=== PATIENT | female | born 1975 | race Caucasian/White ===

== ENCOUNTER 2023-04-10 09:40 | Outpatient (CLI) | payer OTHER ==
[~2023-04-10 09:40] MED LIST: DOCUSATE SODIU100 MG PO; PROCTOCREAM-HC30 GM RC
[2023-04-11] MEDS ORDERED: NAPR500T14 PO (12:20)
[2023-04-11] MEDS ORDERED: MORGIDOX100 MG PO (12:20)
== END 2023-04-10 14:28 | disposition home or self-care (01) ==
LOC: LAB 09:40
PROVIDERS: ATTEND Obstetrics & Gynecology
DX: N91.1 Secondary amenorrhea (principal); Z03.818 Encounter for observation for suspected exposure to other biological agents ruled out

== ENCOUNTER 2023-04-11 09:49 | Day surgery (SDC) | payer OTHER ==
[2023-04-11] MEDS ORDERED: NAPR500T14 PO (12:20)
[2023-04-11] MEDS ORDERED: MORGIDOX100 MG PO (12:20)
== END 2023-04-11 17:05 | disposition home or self-care (01) ==
LOC: CIR.AMB 09:49
PROVIDERS: ATTEND Obstetrics & Gynecology
DX: N85.02 Endometrial intraepithelial neoplasia [EIN] (principal); N93.8 Other specified abnormal uterine and vaginal bleeding; I10 Essential (primary) hypertension; Z20.822 Contact with and (suspected) exposure to COVID-19

== ENCOUNTER 2023-06-20 10:15 | Inpatient (IN) | payer OTHER ==
[~2023-06-20] VITALS: Ht 160 cm; Wt 92.5 kg
[~2023-06-20 10:15] MED LIST changes: +MORGIDOX100 MG PO; +NAPR500T14 PO
[2023-06-27] MEDS ORDERED: CEFOXITIN SODIUM 2,000 MG VIAL IV ONE ×5 (10:09→17:42)
[2023-06-27] MEDS ORDERED: POVIDONE-IODINE 118 ML BOTT TOP ONE (13:00)
[2023-06-27] MEDS ORDERED: RINGERS SOLUTION,LACTATED 1,000 ML IV SCH (15:00)
[2023-06-27] MEDS ORDERED: MEPERIDINE HCL/PF 50 MG/ML VIAL IV SCH (15:01)
[2023-06-27] MEDS ORDERED: PROMETHAZINE HCL 50 MG/ML AMPUL IV SCH (15:02)
[2023-06-27] MEDS ORDERED: SIMETHICONE 125 MG CAPSULE PO SCH (17:00)
[2023-06-27] MEDS ORDERED: CEFOXITIN SODIUM 1,000 MG VIAL IV SCH (17:00)
[2023-06-27 20:25] LABS: HEMATOCRIT 31.1 % (36.0-45.00); HEMOGLOBIN 10.1 g/dL (12.0-15.00); MEAN CELL VOLUME 81.9 fL (80.00-100.00); MEAN CORPUSCULAR HEMOGLOBIN 26.6 pg (27.00-32.0); MEAN CORPUSCULAR HGB CONC 32.5 g/dl (32.0-36.0); PLATELET COUNT 344 K/uL (150-450); RED CELL DISTRIBUTION WIDTH 15.9 % (11.5-14.5)
[2023-06-28] MEDS ORDERED: ACETAMINOPHEN WITH CODEINE 1 UDTAB TABLET PO SCH (09:00)
[2023-06-28] MEDS ORDERED: NAPROXEN 500 MG TABLET PO SCH (09:00)
[2023-06-28] MEDS ORDERED: DOCUSATE SODIUM 100MG CAP PO SCH (17:00)
[2023-06-30] MEDS ORDERED: ACETAMINOPHEN-1 EAC2 PO (09:41)
[2023-06-30] MEDS ORDERED: COLACE100 MG PO (09:41)
[2023-06-30] MEDS ORDERED: NAPR500T14 PO (09:41)
== END 2023-06-30 12:35 | disposition home or self-care, planned readmission (81) | DRG 743 ==
LOC: SURH 06-27 06:23 → O/R 06-27 06:23 → OB/GYN 06-27 10:15 → SURH 06-27 18:05
PROVIDERS: ADMIT Obstetrics & Gynecology; ATTEND Obstetrics & Gynecology
PROC: 0UT70ZZ Resection of Bilateral Fallopian Tubes, Open Approach (ICD-10-PCS; 2023-06-27)
PROC: 0UT20ZZ Resection of Bilateral Ovaries, Open Approach (ICD-10-PCS; 2023-06-27)
PROC: 0TJB8ZZ Inspection of Bladder, Via Natural or Artificial Opening Endoscopic (ICD-10-PCS; 2023-06-27)
PROC: 0UT90ZZ Resection of Uterus, Open Approach (ICD-10-PCS; principal; 2023-06-27 12:00)
DX: N80.03 Adenomyosis of the uterus (principal); N72 Inflammatory disease of cervix uteri; Z20.822 Contact with and (suspected) exposure to COVID-19